=== PATIENT | male | born 1970 | race Caucasian/White ===

== ENCOUNTER 2018-04-11 20:08 | Observation (INO) | payer SELFPAY ==
[~2018-04-11] VITALS: Ht 188 cm; Wt 80.3 kg
[2018-04-11 20:39] LABS: HEMATOCRIT 44.7 % (39.0-50.0); HEMOGLOBIN 15.4 g/dl (14.0-18.0); IMMATURE GRANULOCYTES 0.3 % (0.0-5.0); MEAN CELL VOLUME 99.6 fL CALC (80.0-100.0); MEAN CORPUSCULAR HGB 34.3 pG CALC (26.0-32.0); MEAN CORPUSCULAR HGB CONC 34.5 g/L CALC (32.0-36.0); NEUT# 6.17 thou/uL (1.82-7.42); RED BLOOD COUNT 4.49 mill/uL (4.70-6.10); RED CELL DISTRI WIDTH 12.8 % (11.5-15.5)
[2018-04-11 21:25] LABS: URINE BILIRUBIN - DIPSTICK NEGATIVE (NEGATIVE); URINE BLOOD DIPSTICK NEGATIVE (NEGATIVE); URINE COLOR YELLOW; URINE GLUCOSE - DIPSTICK NEGATIVE (NEGATIVE); URINE KETONE TRACE mg/dL (NEGATIVE); URINE LEUK ESTERASE NEGATIVE (NEGATIVE); URINE NITRITE - DIPSTICK NEGATIVE (Negative); URINE PH 6.5 (4.5-8.0); URINE PROTEIN - DIPSTICK TRACE mg/dL (NEG-TRACE)
[2018-04-11 21:25] LABS: ALKALINE PHOSPHATASE 71 u/l (38-126); ANION GAP 13 (6-22 (CALC)); BILIRUBIN, TOTAL 0.6 mg/dL (0.0-1.4); BUN 8 mg/dL (9-20); BUN/CREATININE RATIO 10 (12-20 (CALC)); CARBON DIOXIDE 27 mmol/l (22-30); CHLORIDE 103 mmol/l (95-108); CREATININE 0.8 mg/dL (0.7-1.3); GFR > 60 ML/MIN (>=60 (CALC)); GFR FOR AFR.AMER. > 60 ML/MIN (>=60 (CALC)); POTASSIUM 3.9 mmol/l (3.5-5.1); SGOT/AST 32 u/l (17-59); SODIUM 139 mmol/l (137-146)
[2018-04-11 21:37] LABS: MYOGLOBIN 87 ng/mL (0 - 121)
[2018-04-11 22:16] LABS: BARBITURATES NEGATIVE (NEGATIVE); COCAINE NEGATIVE (NEGATIVE); METHADONE NEGATIVE (NEGATIVE); TETRAHYDROCANNABIONOL NEGATIVE (NEGATIVE); TRICYLIC ANTIDEPRESSANTS NEGATIVE (NEGATIVE)
[2018-04-11 22:17] LABS: OXCYCODONE NEGATIVE (NEGATIVE)
[2018-04-11 23:17] VITALS: BP 119/71
[2018-04-12 03:16] LABS: CHOLESTEROL HDL RATIO 2.2 (<4.4 (CALC))
[2018-04-12 03:50] VITALS: BP 95/56
[2018-04-12 08:44] VITALS: BP 93/54
[2018-04-12 11:42] VITALS: BP 103/59
[2018-04-12] MEDS ORDERED: DOXYCYCL HYC100 MG PO (12:26)
[2018-04-12] MEDS ORDERED: COMBIVENT RESPIMAT IN (12:27)
[2018-04-12] MEDS ORDERED: MEDDOSEPAK PO (12:27)
== END 2018-04-12 17:48 | disposition home or self-care (01) | DRG 313 ==
LOC: ED 20:08 → ED-I 22:21 → ED 22:52 → MS2 22:53
PROVIDERS: Emergency Medicine; ADMIT Internal Medicine; ATTEND Internal Medicine
DX: R07.89 Other chest pain (principal); J44.9 Chronic obstructive pulmonary disease, unspecified; F17.200 Nicotine dependence, unspecified, uncomplicated; R03.0 Elevated blood-pressure reading, without diagnosis of hypertension
CPT/HCPCS: G0378